=== PATIENT | female | born 2000 | race African-American/Black ===

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

== ENCOUNTER 2022-01-14 00:15 | Emergency (ER) | payer MEDICAID ==
[~2022-01-14] VITALS: Ht 167.6 cm; Wt 84.4 kg
[~2022-01-14 00:15] MED LIST: SULF-292 MT
[2022-01-14 00:21] VITALS: BP 135/79
[2022-01-14] MEDS ORDERED: ACETAMINOPHEN 325MG TABLET PO ONE (03:15)
[2022-01-14 03:24] LABS: BASOPHILS % 0.3 % (0.0-2.0); EOSINOPHILS % 0.7 % (0.0-5.0); HEMATOCRIT. 37.2 % (36.0-48.0); HEMOGLOBIN. 12.3 g/dL (12.0-16.0); LYMPHOCYTES % 16.4 % (20.0-50.0); MEAN CORPUSCULAR HEMOGLOBIN 27.7 pg (28.0-32.0); MEAN CORPUSCULAR VOLUME 83.9 fL (81.0-99.0); MEAN PLATELET VOLUME 7.7 fl (7.4-10.4); MONOCYTES % 6.9 % (2.0-8.0); NEUTROPHILS % 75.7 % (40.0-76.0); PLATELET 400 x1000/uL (130-400); RED BLOOD CELL COUNT 4.43 mill/uL (4.2-5.4); RED CELL DISTRIBUTION WIDTH 13.1 % (11.6-14.6)
[2022-01-14 03:39] LABS: CLARITY URINE CLOUDY (CLEAR); COLOR URINE YELLOW (YELLOW); KETONES URINE NEGATIVE (NEGATIVE); LEUKOCYTE ESTERASE URINE 3+ (NEGATIVE); NITRITE URINE NEGATIVE (NEGATIVE); OCCULT BLOOD URINE TRACE (NEGATIVE); PROTEIN URINE TRACE (NEGATIVE); SPECIFIC GRAVITY URINE 1.029 (1.005-1.030)
[2022-01-14 03:40] LABS: CHLORIDE 106 mEq/L (98-107)
[2022-01-14 03:53] LABS: *AMPHETAMINES SCREEN URINE NEGATIVE (NEGATIVE); *BARBITURATES SCREEN URINE NEGATIVE (NEGATIVE); *BENZODIAZEPINES SCREEN URINE NEGATIVE (NEGATIVE); *COCAINE SCREEN URINE NEGATIVE (NEGATIVE); CANNABINOID URINE SCREEN NEGATIVE (NEGATIVE); METHADONE URINE SCREEN NEGATIVE (NEGATIVE); OPIATES URINE SCREEN NEGATIVE (NEGATIVE); PHENCYCLIDINE URINE SCREEN NEGATIVE (NEGATIVE)
[2022-01-14 04:03] LABS: B-HCG QUANTITATIVE 10176 mIU/mL (<3)
[2022-01-14] MEDS ORDERED: NITR-87 MT (05:23)
[2022-01-14] MEDS ORDERED: MICO45CR16 VG (05:23)
[2022-01-14] MEDS ORDERED: METR-167 MT (05:23)
[2022-01-14] MEDS ORDERED: TOPUD MT (05:25)
[2022-01-16 06:11] LABS: NEISSERIA GONORRHOEAE NAA Negative (Negative)
== END 2022-01-14 05:42 | disposition home or self-care (01) ==
LOC: ER 00:23
DX: O98.811 Other maternal infectious and parasitic diseases complicating pregnancy, first trimester (principal); O23.41 Unspecified infection of urinary tract in pregnancy, first trimester; N39.0 Urinary tract infection, site not specified; Z3A.01 Less than 8 weeks gestation of pregnancy
CPT/HCPCS: 36415; 76801; 80053; 80305; 81003; 81025; 84702; 85025; 87077; 87186; 87210; 87491; 87591; 99284

== ENCOUNTER 2024-10-07 16:17 | Emergency (ER) | payer MEDICAID ==
[~2024-10-07] VITALS: Ht 165.1 cm; Wt 92.0 kg
[~2024-10-07 16:17] MED LIST changes: +METR-167 MT; +MICO45CR16 VG; +NITR-87 MT; +TOPUD MT
[2024-10-07 16:34] VITALS: O2SAT 98
[2024-10-07] MEDS ORDERED: PROP1DRO2 MT (18:44)
[2024-10-07] MEDS ORDERED: GENT5DRO38 RIGHTEYE (19:09)
[2024-10-07 20:01] VITALS: BP 113/67; PULSE 90; RESP 12; TEMP 36.7; O2SAT 100
== END 2024-10-07 20:03 | disposition home or self-care (01) ==
LOC: ER 16:17
DX: H10.9 Unspecified conjunctivitis (principal); Z98.890 Other specified postprocedural states; Z79.899 Other long term (current) drug therapy
CPT/HCPCS: 99283